=== PATIENT | female | born 1990 | race Hispanic/Latino ===

== ENCOUNTER 2021-06-29 19:39 | Emergency (ER) | payer OTHER ==
[~2021-06-29] VITALS: Ht 157.5 cm; Wt 68.0 kg
[2021-06-29 19:52] VITALS: BP 120/69
== END 2021-06-29 20:57 | disposition home or self-care (01) ==
LOC: EDH 19:39
DX: S01.81XD Laceration without foreign body of other part of head, subsequent encounter (principal); X58.XXXD Exposure to other specified factors, subsequent encounter
CPT/HCPCS: 99281